=== PATIENT | female | born 1985 | race Caucasian/White ===

== ENCOUNTER → 2018-12-31 | Outpatient (REF) ==
[~2018-12-31] MED LIST: AMOXICILLIN 50500 MG PO; CEFTIN500 MG PO; CIPRO 500MG TA500 MG PO; CLINDAMYCIN HC150 MG PO; DEPO PROVER150 MG/ML IM; FLEXERIL 1010 MG/TAB PO; LORTAB 5/500 501 TAB PO; NO HOME MEDICATIONS; NORCO 325 MG-51 TAB PO; PENICILLIN V250 MG PO; PENICILLIN V500 MG PO; PERCOCET 325 MG1 TA2 PO; PERIDEX (CHLOR480 ML MM; PHENERGAN W/CO120 ML PO; PREDNISONE10 MG PO; PREDNISONE20 MG PO; PROVENTIL0.09 MG/A1 IH; VENTOLIN0.09 MG IH; ZITHROMAX Z PA250 MG PO
[2018-12-31 17:20] LABS: THYROID STIMULATING HORMONE 1.61 uIU/mL (0.465-4.680)
== END ==
LOC: ZLAB.WCH 16:00
PROVIDERS: Physician Assistant
DX: Z01.89 Encounter for other specified special examinations (principal)

== ENCOUNTER → 2020-05-26 | Outpatient (CLI) | payer OTHER ==
[~2020-05-26] MED LIST changes: +EPIPEN 2-PAK1 MG/ML IM; +LASIX 20MG TABL20 MG PO; +SINGULAIR 110 MG/TAB PO; +SYEDA 3 MG-0.031 TAB PO
== END ==
LOC: MHCPAIN 15:07
DX: M47.812 Spondylosis without myelopathy or radiculopathy, cervical region (principal); M54.2 Cervicalgia; R51 Headache; G89.29 Other chronic pain; M54.12 Radiculopathy, cervical region
CPT/HCPCS: G0463

== ENCOUNTER 2020-06-23 15:15 | Outpatient (RCR) | payer OTHER | END 2020-08-04 | disposition home or self-care (01) | LOC: WSPT | DX: M48.02 Spinal stenosis, cervical region (principal) ==